=== PATIENT | male | born 1935 | race African-American/Black ===

== ENCOUNTER 2023-04-01 13:50 | Observation (INO) | payer MEDICARE, OTHER ==
[2023-04-01 15:19] LABS: ALT (SGPT) 32 U/L (8-55); AST (SGOT) 20 U/L (5-34); Albumin 2.3 g/dL (3.4-4.8); Alkaline Phosphatase 32 U/L (40-110); Anion Gap 10 mmol/L (10-20); BUN (Urea Nitrogen) 24 mg/dL (8.4-25.7); Bilirubin, Total 0.3 mg/dL (0.2-1.2); Calc. Creatinine Clearance 0 mL/min (70-130); Calcium 8.1 mg/dL (7.8-10.44); Carbon Dioxide 20 mmol/L (23-31); Chloride 110 mmol/L (98-107); Estimated GFR 42; Globulin 5.7 g/dL (2.4-3.5); Glucose 128 mg/dL (83-110); Sodium 136 mmol/L (136-145)
[2023-04-01 15:20] LABS: #Monocytes 0.3 10x3/uL (0.0-1.1); #Neutrophils 1.2 10x3/uL (1.5-8.4); %Basophils 0.4 % (0.0-2.0); %Eosinophils 0.4 % (0.0-6.0); %Lymphocytes 42.8 % (18.0-47.0); %Monocytes 9.8 % (0.0-10.0); %Neutrophils 45.1 % (40.0-75.0); Hematocrit 18.9 % (38.8-50.0); Hemoglobin 6.4 g/dL (13.5-17.5); Mean Corpuscular HGB CONC 33.9 g/dL (32.0-36.0); Mean Corpuscular Hemoglobin 35.6 pg (27.0-33.0); Platelet Count 14 10x3/uL (150-450); RBC Distribution Width 17.2 % (11.5-14.5); White Blood Cell (WBC) Count 2.6 10x3/uL (3.5-10.5)
[2023-04-01 15:21] LABS: Troponin I 0.018 ng/mL (< 0.028)
[2023-04-01 15:53] LABS: Anisocytosis SLIGHT = 6-15 cells (100X) (0-5/hpf); Macrocytosis SLIGHT = 6-15 cells (100X) (0-5/hpf)
[2023-04-01 15:54] LABS: Platelet Adequacy Comment Significant decrease; Reflex for Review?? YES
[2023-04-01 15:56] LABS: Hypochromia SLIGHT = 6-15 cells (100X) (0-5/hpf); Tear Drops SLIGHT = 2-5 cells (100X) (0-1/hpf)
[2023-04-01] MEDS ORDERED: Ondansetron ODT 4 MG TAB PO PRN (17:26)
[2023-04-01] MEDS ORDERED: Acetaminophen 325 MG TAB PO PRN (17:26)
[2023-04-01] MEDS ORDERED: Ondansetron PF 4 MG/2 ML Vial IVP PRN (17:26)
[2023-04-01 18:49] LABS: Bilirubin Neg (Negative); Blood, Urine Negative (Negative); Clarity Clear (Clear); Glucose, Urine (Dipstick) Normal (Negative); Ketone, Urine Negative (Negative); Leukocyte Negative (Negative); Nitrite Negative (Negative); Protein, Urine (Dipstick) Negative (Neg-Trace); Urobilinogen Normal mg/dL (Less than 2)
[2023-04-01 19:15] LABS: Bacteria/HPF None Seen HPF (None Seen); CAUTI Indications for Culture Alt mental st,lethar; RBC/HPF None Seen HPF (0-3); Squamous Epithelial 0-3 HPF (0-3); WBC/HPF 0-3 HPF (0-3)
[2023-04-01 19:17] LABS: Urine Culture Reflex No No
[2023-04-01] MEDS ORDERED: Docusate 100 MG CAP PO SCH (19:45)
[2023-04-01 22:34] VITALS: BMI 16.9
[2023-04-02 04:04] LABS: Anion Gap 10 mmol/L (10-20); BUN (Urea Nitrogen) 23 mg/dL (8.4-25.7); Calc. Creatinine Clearance 31 mL/min (70-130); Calcium 8.1 mg/dL (7.8-10.44); Carbon Dioxide 21 mmol/L (23-31); Chloride 110 mmol/L (98-107); Estimated GFR 48; Glucose 78 mg/dL (83-110); Potassium 3.8 mmol/L (3.5-5.1); Sodium 137 mmol/L (136-145)
[2023-04-02 04:05] LABS: #Monocytes 0.3 10x3/uL (0.0-1.1); #Neutrophils 1.2 10x3/uL (1.5-8.4); %Eosinophils 0.4 % (0.0-6.0); %Lymphocytes 36.6 % (18.0-47.0); %Monocytes 11.9 % (0.0-10.0); %Neutrophils 50.7 % (40.0-75.0); Mean Corpuscular HGB CONC 33.3 g/dL (32.0-36.0); Mean Corpuscular Hemoglobin 34.7 pg (27.0-33.0); Platelet Count 13 10x3/uL (150-450); RBC Distribution Width 17.2 % (11.5-14.5); Red Blood Cell (RBC) Count 1.73 10x6/uL (4.32-5.72); White Blood Cell (WBC) Count 2.3 10x3/uL (3.5-10.5)
[2023-04-02] MEDS ORDERED: Dextrose 5% in Water 1,000 ML IV PRN (07:34)
[2023-04-02] MEDS ORDERED: Glucagon 1 MG/ML KIT IM PRN (07:34)
[2023-04-02] MEDS ORDERED: Dextrose 50% Abboject 50 ML SYRINGE SLOW IVP PRN (07:34)
[2023-04-02 10:06] LABS: Magnesium 1.8 mg/dL (1.6-2.6)
[2023-04-02] MEDS ORDERED: Magnesium 2 GM/50 ML(in water) 2 GM in Premix Bag 1 BAG IVPB SCH (11:00)
[2023-04-02 21:15] VITALS: BP 138/77; TEMP 98.6
== END 2023-04-02 21:00 | disposition short-term general hospital (02) ==
LOC: CSHERS 13:50 → CSHTELE 17:26
PROVIDERS: ADMIT Internal Medicine; ATTEND Family Medicine
DX: R55 Syncope and collapse (principal); C90.00 Multiple myeloma not having achieved remission; E78.5 Hyperlipidemia, unspecified; I69.354 Hemiplegia and hemiparesis following cerebral infarction affecting left non-dominant side; I12.9 Hypertensive chronic kidney disease with stage 1 through stage 4 chronic kidney disease, or unspecified chronic kidney disease; N18.9 Chronic kidney disease, unspecified; D63.1 Anemia in chronic kidney disease; Z88.0 Allergy status to penicillin; Z91.013 Allergy to seafood; Z79.82 Long term (current) use of aspirin; Z98.890 Other specified postprocedural states; Z79.899 Other long term (current) drug therapy; Z85.79 Personal history of other malignant neoplasms of lymphoid, hematopoietic and related tissues
CPT/HCPCS: 74176; 80048; 80053; 81001; 83735; 84484; 85025 ×2; 86850; 86900; 86901; 93005; 93306; 93880; 94760; 96374; 97530; 99285; G0378 ×3; 36415; 85060; J3475